=== PATIENT | male | born 1945 | race Caucasian/White ===

== ENCOUNTER 2016-12-27 00:48 | Emergency (ER) | payer MEDICARE, BC ==
[2016-12-27] MEDS ORDERED: Ketorolac 60 MG/2 ML SDV IM ONE (02:03)
[2016-12-27] MEDS ORDERED: Cyclobenzaprine 10 MG Tab PO ONE (02:04)
--- NOTE | 2016-12-27 02:06 | EDM.PDOC ---
ED HPI GENERAL MEDICAL PROBLEM - General Chief Complaint: General Stated Complaint: FALL RIBS AND RIGHT ARM PAIN Time Seen by Provider: 12/27/16 02:06 Source of Information: Reports: Patient History Limitations: Reports: No Limitations - History of Present Illness INITIAL COMMENTS - FREE TEXT/NARRATIVE: pt arrived after landing on a railroad tie while he was painting. He has pain in the rt ant chest and is tender over the sternum/ Onset: Today Duration: Hour(s): Location: Reports: Chest, Upper Extremity, Right Associated Symptoms: Reports: Chest Pain, Other (pt has pain with deep breathing. ) Right Chest Pain Score (Numeric/FACES): 5 - Related Data Allergies Allergy/AdvReac Type Severity Reaction Status Date / Time No Known Allergies Allergy Verified 12/27/16 01:22 Home Meds: Home Meds Aspirin [Clair Chewable Aspirin] 1 tab PO DAILY 12/23/15 [History] Cholecalciferol (Vitamin D3) [Vitamin D3] 2,000 unit PO DAILY 12/27/16 [History] Clopidogrel [Plavix] 75 mg PO DAILY 12/27/16 [History] Flaxseed Oil [Flaxseed] 2,000 mg PO DAILY 12/27/16 [History] Levocarnitine L-Tartrate 500 mg PO DAILY 12/27/16 [History] Metoprolol Succinate [Toprol XL] 1.5 tab PO DAILY 12/27/16 [History] Nitroglycerin [Nitrostat] 0.4 mg SL ASDIRECTED 12/27/16 [History] [place]-3/DHA/Epa/Fish Oil [[place]-3 Fish Oil 1,200 MG Sfgl] 1 tab PO DAILY [History] Vitamin B Complex [Ultra B-100 Complex] 1 each PO DAILY 12/27/16 [History] amLODIPine [Norvasc] 5 mg PO DAILY 12/27/16 [History] atorvaSTATin [Lipitor] 40 mg PO ONETIME 12/27/16 [History] Past Medical History HEENT History: Reports: Cataract, Impaired Vision, Other (See Below) Other HEENT History: r eye surgery cataract fold in l eye Cardiovascular History: Reports: High Cholesterol, Hypertension Respiratory History: Reports: Pneumonia, Recurrent Musculoskeletal History: Reports: Fracture Other Musculoskeletal History: l humerus fx Neurological History: Reports: Concussion Dermatologic History: Reports: Other (See Below) Other Dermatologic History: skin tag l waist - Infectious Disease History Infectious Disease History: Reports: Chicken Pox, Measles, Mumps, Shingles - Past Surgical History HEENT Surgical History: Reports: Tonsillectomy Cardiovascular Surgical History: Reports: Coronary Artery Stent GI Surgical History: Reports: Colonoscopy Musculoskeletal Surgical History: Reports: Shoulder Surgery Other Musculoskeletal Surgeries/Procedures:: l and r rotator surgery Social & Family History - Tobacco Use Smoking Status *Q: Never Smoker Second Hand Smoke Exposure: No - Caffeine Use Caffeine Use: Reports: Coffee, Soda, Tea - Alcohol Use Days Per Week of Alcohol Use: 3 Number of Drinks Per Day: 2 Total Drinks Per Week: 6 - Recreational Drug Use Recreational Drug Use: No ED ROS GENERAL - Review of Systems Review Of Systems: See Below Constitutional: Reports: No Symptoms HEENT: Reports: No Symptoms Respiratory: Reports: Other (pain with deep breathing. ) Cardiovascular: Reports: No Symptoms Endocrine: Reports: No Symptoms GI/Abdominal: Reports: No Symptoms : Reports: No Symptoms Musculoskeletal: Reports: Other (pt is tender over the sternum) Skin: Reports: No Symptoms ED EXAM, GENERAL - Physical Exam Exam: See Below Free Text/Narrative:: Pt arrived with pain over the sternum and pain in the rt ant rib cage. He has pain in the rt elebow and rt wrist. Exam Limited By: No Limitations General Appearance: Alert, Anxious Ears: Normal TMs Nose: Normal Inspection Throat/Mouth: Normal Inspection Head: Atraumatic Neck: Normal Inspection Respiratory/Chest: Other (pt is tender in the rt elebow and rt shoulder. He has 2 abrasions one at the rt wrist and one at the elebow. ) Cardiovascular: Regular Rate, Rhythm GI/Abdominal: Soft, Non-Tender (Male) Exam: Deferred Rectal (Males) Exam: Deferred Back Exam: Normal Inspection Extremities: Other ( Pt has swelling over the rt elebow and the rt wrist. He is tender to palpate. ) Psychiatric: Anxious Course - Vital Signs Last Recorded V/S: Last Vital Signs Temp 37.2 C 12/27/16 05:37 Pulse 83 12/27/16 05:37 Resp 16 12/27/16 05:37 BP 164/88 H 12/27/16 05:37 Pulse Ox 96 12/27/16 05:37 - Orders/Labs/Meds Meds: Medications Discontinued Medications Generic Name Dose Route Start Last Admin Trade Name Nileshq PRN Reason Stop Dose Admin Bacitracin 1 dose 12/27/16 05:10 12/27/16 05:14 Bacitracin Oint 1 Gm TOP 12/27/16 05:11 1 dose ONETIME ONE Administration Cyclobenzaprine HCl 10 mg 12/27/16 02:04 12/27/16 02:17 Flexeril PO 12/27/16 02:05 10 mg ONETIME ONE Administration Ketorolac Tromethamine 60 mg 12/27/16 02:03 12/27/16 02:11 Toradol IM 12/27/16 02:04 60 mg ONETIME ONE Administration - Re-Assessments/Exams Free Text/Narrative Re-Assessment/Exam: 12/29/16 13:33 pt had neg elebow, neg humerus, neg wrist/ He doesh ave 2 rib fractures on the rt. Departure - Departure Time of Disposition: 05:10 Disposition: Home, Self-Care 01 Condition: Fair Clinical Impression: Contusion of right elbow, Contusion of right wrist, Contusion of sternum, Contusion of right chest wall - Discharge Information Instructions: Contusion, [id number] Referrals: PCP,None [Primary Care Provider] - Forms: ED Department Discharge Care Plan Goals: cool pack to elebow, sling for comfort, vicodin 5/325 q6h prn for pain, flexeril 10mg 1/2 tab qam and 1 tab hs for the next 5 days. motrin 600mg tid
[2016-12-27] MEDS ORDERED: Bacitracin Oint 1 GM U/D Packet TOP ONE (05:10)
[2016-12-27 05:38] VITALS: BP 164/88
--- NOTE | 2016-12-28 08:59 | CR ---
Humerus Rt HISTORY: Contusion. COMPARISON: None FINDINGS: No fracture or dislocation. No bony destructive process. Minimal degenerative subchondral c ystic changes in the humeral head.
--- NOTE | 2016-12-28 09:00 | CR ---
Wrist Comp Min 3V Rt HISTORY: Contusion COMPARISON: None FINDINGS: No fracture or dislocation. No bony destructive process.
--- NOTE | 2016-12-28 09:03 | CR ---
Elbow Min 3V Rt HISTORY: Pain COMPARISON: None FINDINGS: Lucency within the proximal radial head. On the first film is extends beyond the cortex com patible with probable skinfold. I do not see definitive cortical displaced fracture. As well there is no effusion to suggest occult injury. Impression: No definite fractures seen. If pain continues would suggest repeat imaging in 7-10 days.
== END 2016-12-27 05:39 | disposition home or self-care (01) ==
LOC: JP.ED 00:48
DX: S50.01XA Contusion of right elbow, initial encounter (principal); S60.211A Contusion of right wrist, initial encounter; S20.211A Contusion of right front wall of thorax, initial encounter; I10 Essential (primary) hypertension; E78.00 Pure hypercholesterolemia, unspecified; Z98.890 Other specified postprocedural states; Z95.5 Presence of coronary angioplasty implant and graft; Z79.82 Long term (current) use of aspirin; Z79.02 Long term (current) use of antithrombotics/antiplatelets; Z79.899 Other long term (current) drug therapy; Z87.01 Personal history of pneumonia (recurrent); W17.89XA Other fall from one level to another, initial encounter; Y93.89 Activity, other specified
CPT/HCPCS: 71250; 73060; 73080; 73110; 96372; 99284; A9270; J1885

== ENCOUNTER 2018-08-22 07:28 | Emergency (ER) | payer MEDICARE, BC ==
[2018-08-22 07:58] VITALS: BP 121/85
[2018-08-22] MEDS ORDERED: Doxycycline 100 MG Cap PO ONE (08:07)
--- NOTE | 2018-08-22 08:11 | EDM.PDOC ---
ED HPI GENERAL MEDICAL PROBLEM - General Chief Complaint: Bite:Animal, Insect Stated Complaint: WOOD TICK BITE LEFT WAIST LINE Time Seen by Provider: 08/22/18 08:00 Source of Information: Reports: Patient, Family History Limitations: Reports: No Limitations - History of Present Illness INITIAL COMMENTS - FREE TEXT/NARRATIVE: 72-year-old male pulled a tick off his left waist line this morning, has a small adult tick that does not have any engorgement. They removed in its entirety. He does have a nickel-sized inflammatory response which itches and stings. No fevers or chills. Associated Symptoms: Reports: No Other Symptoms - Related Data Allergies Allergy/AdvReac Type Severity Reaction Status Date / Time No Known Allergies Allergy Verified 12/27/16 01:22 Home Meds: Home Meds Aspirin [Clair Chewable Aspirin] 1 tab PO DAILY 12/23/15 [History] Cholecalciferol (Vitamin D3) [Vitamin D3] 2,000 unit PO DAILY 12/27/16 [History] Flaxseed Oil [Flaxseed] 2,000 mg PO DAILY 12/27/16 [History] Metoprolol Succinate [Toprol XL] 1.5 tab PO DAILY 12/27/16 [History] Nitroglycerin [Nitrostat] 0.4 mg SL ASDIRECTED 12/27/16 [History] [place]-3/DHA/Epa/Fish Oil [[place]-3 Fish Oil 1,200 MG Sfgl] 1 tab PO DAILY [History] Vitamin B Complex [Ultra B-100 Complex] 1 each PO DAILY 12/27/16 [History] amLODIPine [Norvasc] 5 mg PO DAILY 12/27/16 [History] atorvaSTATin [Lipitor] 10 mg PO ASDIRECTED 12/27/16 [History] Past Medical History HEENT History: Reports: Cataract, Impaired Vision, Other (See Below) Other HEENT History: r eye surgery cataract fold in l eye Cardiovascular History: Reports: High Cholesterol, Hypertension Respiratory History: Reports: Pneumonia, Recurrent Musculoskeletal History: Reports: Fracture Other Musculoskeletal History: l humerus fx Neurological History: Reports: Concussion Dermatologic History: Reports: Other (See Below) Other Dermatologic History: skin tag l waist - Infectious Disease History Infectious Disease History: Reports: Chicken Pox, Measles, Mumps, Shingles - Past Surgical History HEENT Surgical History: Reports: Tonsillectomy Cardiovascular Surgical History: Reports: Coronary Artery Stent GI Surgical History: Reports: Colonoscopy Musculoskeletal Surgical History: Reports: Shoulder Surgery Other Musculoskeletal Surgeries/Procedures:: l and r rotator surgery Social & Family History - Tobacco Use Smoking Status *Q: Never Smoker - Caffeine Use Caffeine Use: Reports: Coffee - Recreational Drug Use Recreational Drug Use: No ED ROS GENERAL - Review of Systems Review Of Systems: See Below Constitutional: Denies: Fever Respiratory: Reports: No Symptoms GI/Abdominal: Denies: Nausea, Vomiting Skin: Reports: Pruritis (At the bite site), Erythema Neurological: Reports: No Symptoms ED EXAM, ANIMAL BITE - Physical Exam Exam: See Below Exam Limited By: No Limitations General Appearance: Alert, No Apparent Distress Respiratory/Chest: No Respiratory Distress Skin Exam: Other (On the left waistline there is a small reddened circular inflammatory response to a tick bite 2 cm wide.) Course - Vital Signs Last Recorded V/S: Last Vital Signs Temp 97.1 F 08/22/18 07:58 Pulse 69 08/22/18 07:58 Resp 16 08/22/18 07:58 BP 121/85 08/22/18 07:58 Pulse Ox 99 08/22/18 07:58 - Orders/Labs/Meds Meds: Medications Discontinued Medications Generic Name Dose Route Start Last Admin Trade Name Sg PRN Reason Stop Dose Admin Doxycycline Hyclate 200 mg 08/22/18 08:07 08/22/18 08:12 Vibramycin PO 08/22/18 08:08 200 mg ONETIME ONE Administration - Re-Assessments/Exams Free Text/Narrative Re-Assessment/Exam: 08/22/18 08:09 The patient has the tick with him in a small container which is still alive and intact. There is no engorgement of the tick. Patient was reassured that his chance of obtaining an infection from this tick is small and can be improved with one oral dose of 200 mg of doxycycline. This was given. He is going to keep the wound clean while healing and return if more symptoms develop. Departure - Departure Time of Disposition: 08:20 Disposition: Home, Self-Care 01 Condition: Good Clinical Impression: Tick bite of abdomen Qualifiers: Encounter type: initial encounter Qualified Code(s): S30.861A - Insect bite ( nonvenomous) of abdominal wall, initial encounter - Discharge Information Instructions: Tick Bite Information, Adult, [id number] Referrals: PCP,None [Primary Care Provider] - Forms: ED Department Discharge Care Plan Goals: Keep the bite area clean while healing and return if worsening such as fevers or joint pains. Significant increase in rash should also be rechecked.
== END 2018-08-22 08:20 | disposition home or self-care (01) ==
LOC: JP.ED 07:28
DX: S30.861A Insect bite (nonvenomous) of abdominal wall, initial encounter (principal); I10 Essential (primary) hypertension; E78.00 Pure hypercholesterolemia, unspecified; Z79.82 Long term (current) use of aspirin; Z79.899 Other long term (current) drug therapy; W57.XXXA Bitten or stung by nonvenomous insect and other nonvenomous arthropods, initial encounter
CPT/HCPCS: 99282; A9270

== ENCOUNTER 2020-01-22 07:53 | Emergency (ER) | payer MEDICARE, BC ==
[2020-01-22 08:08] VITALS: BP 158/86; PULSE 70
--- NOTE | 2020-01-22 08:23 | EDM.PDOC ---
ED HPI GENERAL MEDICAL PROBLEM - General Chief Complaint: Chest Pain Stated Complaint: HEART ISSUES [facility] [place] Time Seen by Provider: 01/22/20 08:14 Source of Information: Reports: Patient History Limitations: Reports: No Limitations - History of Present Illness INITIAL COMMENTS - FREE TEXT/NARRATIVE: 74-year-old male with known coronary artery disease, received 3 stents 4 years ago started developing some intermittent chest pain and pressure with activity 3 months ago. He was having some pain last week and saw his principal programmer on Wednesday, he did a "bunch of tests" and set him up for an angiogram next month. 2 days ago he was at a store in [place] and carried some heavy cases of water and since that time he has had some pain in his chest when he lowers his head or lies on his left side. This morning he was sitting at breakfast, bent his head forward and developed pain in his chest and decided he should probably come in and get checked. It only lasted a few seconds. He also had a difficult time sleeping last night because he was uncomfortable with back and left shoulder pain. He does not get diaphoretic or short of breath. [facility] to tell [facility] was on his way and they recommended he stop here to be evaluated. He is asymptomatic at this time, monitor shows normal sinus rhythm and good vitals. Onset: Unknown/Unsure (Symptoms have been intermittent for months, the symptoms he is having now are fairly recent) Duration: Other (The pressure tends to only last a few seconds) Location: Reports: Chest Associated Symptoms: Denies: Cough, Diaphoresis, Fever/Chills, Loss of Appetite, Malaise, Nausea/Vomiting, Shortness of Breath, Weakness - Related Data Allergies Allergy/AdvReac Type Severity Reaction Status Date / Time No Known Allergies Allergy Verified 12/27/16 01:22 Home Meds: Home Meds Aspirin [Clair Chewable Aspirin] 1 tab PO DAILY 12/23/15 [History] Cholecalciferol (Vitamin D3) [Vitamin D3] 2,000 unit PO DAILY 12/27/16 [History] Flaxseed Oil [Flaxseed] 2,000 mg PO DAILY 12/27/16 [History] Metoprolol Succinate [Toprol XL] 1.5 tab PO DAILY 12/27/16 [History] Nitroglycerin [Nitrostat] 0.4 mg SL ASDIRECTED 12/27/16 [History] [place]-3/DHA/Epa/Fish Oil [[place]-3 Fish Oil 1,200 MG Sfgl] 1 tab PO DAILY 12/27/16 [History] Vitamin B Complex [Ultra B-100 Complex] 1 each PO DAILY 12/27/16 [History] amLODIPine [Norvasc] 5 mg PO DAILY 12/27/16 [History] atorvaSTATin [Lipitor] 10 mg PO ASDIRECTED 12/27/16 [History] Past Medical History HEENT History: Reports: Cataract, Impaired Vision, Other (See Below) Other HEENT History: r eye surgery cataract fold in l eye Cardiovascular History: Reports: High Cholesterol, Hypertension Respiratory History: Reports: Pneumonia, Recurrent Musculoskeletal History: Reports: Fracture Other Musculoskeletal History: l humerus fx Neurological History: Reports: Concussion Dermatologic History: Reports: Other (See Below) Other Dermatologic History: skin tag l waist - Infectious Disease History Infectious Disease History: Reports: Chicken Pox, Measles, Mumps - Past Surgical History HEENT Surgical History: Reports: Tonsillectomy Cardiovascular Surgical History: Reports: Coronary Artery Stent GI Surgical History: Reports: Colonoscopy Musculoskeletal Surgical History: Reports: Shoulder Surgery Other Musculoskeletal Surgeries/Procedures:: l and r rotator surgery Social & Family History - Tobacco Use Tobacco Use Status *Q: Never Tobacco User - Caffeine Use Caffeine Use: Reports: Coffee, Soda, Tea - Recreational Drug Use Recreational Drug Use: No ED ROS GENERAL - Review of Systems Review Of Systems: See Below Constitutional: Denies: Fever, Chills HEENT: Denies: Vision Change Respiratory: Denies: Shortness of Breath Cardiovascular: Reports: Chest Pain (Substernal, pressure, at times sharp). Denies: Palpitations Endocrine: Denies: Fatigue GI/Abdominal: Denies: Abdominal Pain, Nausea, Vomiting Musculoskeletal: Reports: Shoulder Pain (Especially left-sided), Back Pain Skin: Denies: Pallor, Diaphoresis Neurological: Reports: No Symptoms Psychiatric: Reports: No Symptoms ED EXAM, GENERAL - Physical Exam Exam: See Below Exam Limited By: No Limitations General Appearance: Alert, No Apparent Distress Head: Atraumatic Neck: Non-Tender Respiratory/Chest: Lungs Clear, Other (Patient definitely has increasing pain and tenderness to palpation along the left costochondral junction) Cardiovascular: Regular Rate, Rhythm, Other (Very faint systolic murmur is heard). No: Extra Beats Extremities: Normal Inspection. No: Pedal Edema Neurological: Alert, Oriented Psychiatric: Normal Affect, Normal Mood Skin Exam: Warm, Dry Course - Vital Signs Last Recorded V/S: Last Vital Signs Temp 97.9 F 01/22/20 08:14 Pulse 70 01/22/20 08:14 Resp 13 01/22/20 08:14 BP 158/86 H 01/22/20 08:14 Pulse Ox 95 01/22/20 08:14 - Orders/Labs/Meds Labs: Laboratory Tests 01/22/20 Range/Units 08:38 Troponin I < 0.017 (0.000-0.056) ng/mL - Re-Assessments/Exams Free Text/Narrative Re-Assessment/Exam: 01/22/20 08:35 Monitor shows normal sinus rhythm. Explained to the patient that this is not acting like ischemic pain, there is more musculoskeletal pain. A 2 view chest x-ray troponin will be drawn, if these are normal or negative I think I would encourage him to continue his current plan. 01/22/20 09:11 Chest x-ray shows no acute findings and troponin is 0. Patient had difficulty with pain in his chest from positioning for the x-ray. This is very likely costochondritis, he will be discharged with a copy of his chest today and encouraged to take some ibuprofen. Departure - Departure Time of Disposition: 09:41 Disposition: Home, Self-Care 01 Clinical Impression: Costochondritis - Discharge Information Instructions: Costochondritis, [id number] Referrals: Loretta Izaguirre MD [Primary Care Provider] - Forms: ED Department Discharge Care Plan Goals: Consider taking ibuprofen several times daily for the next few days and increase activity as tolerated, you can also take acetaminophen. Return anytime if pain is persistent or you develop shortness of breath. Sepsis Event Note (ED) - Focused Exam Vital Signs: Vital Signs Temp Pulse Resp BP Pulse Ox 01/22/20 08:14 97.9 F 70 13 158/86 H 95 01/22/20 08:07 97.9 F 70 13 158/86 H 95
--- NOTE | 2020-01-22 09:16 | CR ---
CHEST: 2 view CLINICAL HISTORY:Dyspnea COMPARISON:None available FINDINGS: The heart size, pulmonary vascularity and hilar structures are normal. No infiltrate effusion or pneumothorax is seen. IMPRESSION: No acute cardiopulmonary process.
== END 2020-01-22 09:43 | disposition home or self-care (01) ==
LOC: JP.ED 07:53
DX: M94.0 Chondrocostal junction syndrome [Tietze] (principal); E78.00 Pure hypercholesterolemia, unspecified; I10 Essential (primary) hypertension; Z79.82 Long term (current) use of aspirin; Z79.899 Other long term (current) drug therapy
CPT/HCPCS: 36415; 71046; 71046-26; 84484; 99285-25

== ENCOUNTER 2022-03-09 11:02 | Emergency (ER) | payer OTHER | END 2022-03-09 12:19 | disposition left against medical advice (07) | LOC: JP.ED 11:02 | DX: Z53.21 Procedure and treatment not carried out due to patient leaving prior to being seen by health care provider (principal) ==

== ENCOUNTER 2022-03-09 15:07 | Emergency (ER) | payer OTHER ==
[2022-03-09 19:04] VITALS: BP 139/74; PULSE 65
== END 2022-03-09 19:17 | disposition home or self-care (01) ==
LOC: JP.ED 15:07
DX: Z53.21 Procedure and treatment not carried out due to patient leaving prior to being seen by health care provider (principal)

== ENCOUNTER 2024-08-06 21:32 | Emergency (ER) | payer OTHER, MEDICARE ==
[2024-08-06 22:53] LABS: BASOPHILS ABSOLUTE AUTO 0.08 K/uL (0.00-0.10); BASOPHILS PERCENT AUTO 1.2 % (0.1-1.3); EOSINOPHILS ABSOLUTE AUTO 0.24 K/uL (0.00-0.40); EOSINOPHILS PERCENT AUTO 3.7 % (0.0-5.4); HEMATOCRIT 42.7 % (38.4-49.7); HEMOGLOBIN 14.4 g/dL (12.9-16.9); IMMATURE GRAN PERCENT AUTO 0.3 % (0.0-0.7); LYMPHOCYTES ABSOLUTE AUTO 2.03 K/uL (0.8-3.3); LYMPHOCYTES PERCENT AUTO 31.2 % (11.4-47.7); MEAN CORPUSCULAR HEMOGLOBIN 30.9 pg (31.6-35.5); MEAN CORPUSCULAR HGB CONC 33.7 g/dL (31.6-35.5); MEAN CORPUSCULAR VOLUME 91.6 fL (81.4-99.0); MONOCYTES ABSOLUTE AUTO 0.58 K/uL (0.20-0.90); MONOCYTES PERCENT AUTO 8.9 % (3.3-12.6); NEUTROPHILS ABSOLUTE AUTO 3.56 K/uL (1.0-7.6); NEUTROPHILS PERCENT AUTO 54.7 % (40.0-78.1); PLATELET COUNT,PLT 147 K/uL (130-375); RED BLOOD CELL COUNT 4.66 M/uL (4.14-5.76); WHITE BLOOD CELL COUNT,WBC 6.5 K/uL (3.2-11.0)
[2024-08-06 22:54] LABS: IMMATURE GRAN ABSOLUTE AUTO 0.02 K/uL (0.00-0.23)
[2024-08-06 23:09] LABS: A/G RATIO 1.3 (1.2-2.2); ALANINE AMINOTRANSFERASE,ALT 25 U/L (12-78); ALBUMIN 3.6 g/dL (3.4-5.0); ALKALINE PHOSPHATASE 70 U/L (46-116); ASPARTATE AMNIOTRANSFERASE,AST 9 U/L (15-37); BILIRUBIN TOTAL 0.4 mg/dL (0.2-1.0); BLOOD UREA NITROGEN,BUN 19 mg/dL (7-18); CALCIUM 8.8 mg/dL (8.5-10.1); CARBON DIOXIDE,CO2 24 mmol/L (21-32); CHLORIDE,CL 107 mmol/L (100-108); CREATININE 0.9 mg/dL (0.8-1.3); EST CRCL DRUG DOSING (CG) 74.37 mL/min; ESTIMATED GFR 89 mL/min (>60); GLUCOSE RANDOM 122 mg/dL (74-106); POTASSIUM,K 3.5 mmol/L (3.6-5.2); PROTEIN TOTAL,TP 6.4 g/dL (6.4-8.2); SODIUM,NA 145 mmol/L (140-148)
[2024-08-06 23:16] LABS: ANION GAP 17.5 mmol/L (5.0-14.0)
[2024-08-06] MEDS: Sodium Chloride 0.9% 100 ML IV SCH (23:43)
[2024-08-06] MEDS: Iopamidol 612 MG/ML 100 ML Bottle IV SCH (23:43)
[2024-08-06] MEDS: Sodium Chloride 0.9% 10 ML Syringe FLUSH PRN (23:44)
[2024-08-07 00:14] VITALS: BP 125/78; PULSE 63
[2024-08-07 00:33] LABS: APPEARANCE,URINE CLOUDY (CLEAR); BILIRUBIN,URINE NEGATIVE (NEGATIVE); GLUCOSE,URINE 100 mg/dL (NEGATIVE); KETONES,URINE NEGATIVE (NEGATIVE); LEUKOCYTE ESTERASE,URINE NEGATIVE (NEGATIVE); NITRITE,URINE NEGATIVE (NEGATIVE); OCCULT BLOOD,URINE LARGE (NEGATIVE); PH,URINE 6.5 (5.0-8.0); PROTEIN,URINE >=300 mg/dL (NEGATIVE)
[2024-08-07 00:35] LABS: AMORPHOUS SEDIMENT,URINE NOT SEEN; BACTERIA,URINE MANY; COLOR,URINE RED (YELLOW); EPITHELIAL CELLS,URINE RARE; MUCUS,URINE NOT SEEN; RBC,URINE >100 (0-5)
== END 2024-08-07 02:00 | disposition home or self-care (01) ==
LOC: JP.ED 21:32
DX: N39.0 Urinary tract infection, site not specified (principal); C67.9 Malignant neoplasm of bladder, unspecified; I10 Essential (primary) hypertension; E78.00 Pure hypercholesterolemia, unspecified; E11.9 Type 2 diabetes mellitus without complications; Z88.8 Allergy status to other drugs, medicaments and biological substances; Z79.82 Long term (current) use of aspirin; Z79.84 Long term (current) use of oral hypoglycemic drugs; Z79.899 Other long term (current) drug therapy
CPT/HCPCS: 36415; 74177; 80053; 81001; 85025; 99284; Q9967; 99283

== ENCOUNTER 2024-11-23 12:04 | Emergency (ER) | payer OTHER ==
[2024-11-23 13:09] LABS: BASOPHILS ABSOLUTE AUTO 0.07 K/uL (0.00-0.10); BASOPHILS PERCENT AUTO 1.0 % (0.1-1.3); EOSINOPHILS ABSOLUTE AUTO 0.17 K/uL (0.00-0.40); EOSINOPHILS PERCENT AUTO 2.4 % (0.0-5.4); IMMATURE GRAN ABSOLUTE AUTO 0.03 K/uL (0.00-0.23); IMMATURE GRAN PERCENT AUTO 0.4 % (0.0-0.7); LYMPHOCYTES ABSOLUTE AUTO 1.20 K/uL (0.8-3.3); LYMPHOCYTES PERCENT AUTO 17.0 % (11.4-47.7); MONOCYTES ABSOLUTE AUTO 0.49 K/uL (0.20-0.90); MONOCYTES PERCENT AUTO 7.0 % (3.3-12.6); NEUTROPHILS ABSOLUTE AUTO 5.08 K/uL (1.0-7.6); NEUTROPHILS PERCENT AUTO 72.2 % (40.0-78.1); PLATELET COUNT,PLT 186 K/uL (130-375); RED BLOOD CELL COUNT 4.46 M/uL (4.14-5.76); WHITE BLOOD CELL COUNT,WBC 7.0 K/uL (3.2-11.0)
[2024-11-23 13:10] LABS: A/G RATIO 1.3 (1.2-2.2); ALANINE AMINOTRANSFERASE,ALT 30 U/L (12-78); ASPARTATE AMNIOTRANSFERASE,AST 12 U/L (15-37); BILIRUBIN TOTAL 0.8 mg/dL (0.2-1.0); BLOOD UREA NITROGEN,BUN 19 mg/dL (7-18); CARBON DIOXIDE,CO2 30 mmol/L (21-32); CHLORIDE,CL 105 mmol/L (100-108); CREATININE 1.0 mg/dL (0.8-1.3); EST CRCL DRUG DOSING (CG) 63.88 mL/min; ESTIMATED GFR 78 mL/min (>60); GLUCOSE RANDOM 159 mg/dL (74-106); POTASSIUM,K 3.6 mmol/L (3.6-5.2); PROTEIN TOTAL,TP 6.9 g/dL (6.4-8.2); SODIUM,NA 142 mmol/L (140-148); TROPONIN I HIGH SENSITIVITY 11.4 pg/mL (<=60.3)
[2024-11-23 14:34] VITALS: BP 126/70; PULSE 69
== END 2024-11-23 14:34 | disposition home or self-care (01) ==
LOC: JP.ED 12:04
DX: R07.9 Chest pain, unspecified (principal); I10 Essential (primary) hypertension; E78.00 Pure hypercholesterolemia, unspecified; E11.9 Type 2 diabetes mellitus without complications; Z88.8 Allergy status to other drugs, medicaments and biological substances; Z79.82 Long term (current) use of aspirin; Z79.84 Long term (current) use of oral hypoglycemic drugs; Z79.899 Other long term (current) drug therapy
CPT/HCPCS: 36415; 71045; 71045-26; 80053; 84484; 85025; 93005; 99285